=== PATIENT | female | born 1990 | race Caucasian/White ===

== ENCOUNTER → 2018-01-29 11:53 | Outpatient (CLI) | payer SELFPAY ==
[2018-01-29 15:06] LABS: Chlamydia Trachomatis by PCR Negative (Negative); Neisserai gonorrhoeae by PCR Negative (Negative); Probe Check PASS; Sample Adequacy Control PASS; Specimen Processing Control PASS
[2018-02-02 11:18] LABS: HPV Reflexed? NOT INDICATED
== END ==
PROVIDERS: Visit Provider Obstetrics & Gynecology
DX: Z12.4 Encounter for screening for malignant neoplasm of cervix (principal); Z11.3 Encounter for screening for infections with a predominantly sexual mode of transmission; Z32.01 Encounter for pregnancy test, result positive
CPT/HCPCS: 87491; 87591; 88175; G0145

== ENCOUNTER → 2018-02-11 15:04 | Outpatient (CLI) | payer OTHER, SELFPAY ==
--- NOTE | 2018-02-11 15:13 | ECHOD_ITS ---
Reason For Study: SYSTOLIC MURMUR Procedure This was a 2D Doppler, Color Flow transthoracic echocardiogram. Exam performed in department. Left Ventricle Normal size and thickness. The estimated ejection fraction is 65 %. No evidence for diastolic dysfunction. No regional wall motion abnormalities noted. Right Ventricle Normal size and thickness. Normal systolic function. Atria Normal left atrium. Normal right atrium. Normal atrial septum. Mitral Valve The mitral valve is structurally normal. No prolapse or stenosis seen. Tricuspid Valve Normal tricuspid valve. Trivial tricuspid valve insufficiency. Right ventricular systolic pressure estimated to be 38 mmHg. Aortic Valve Trisinus/trileaflet aortic valve. Pulmonic Valve Normal pulmonic valve. Great Vessels Normal aortic root. Normal arch. Normal inferior vena cava. Inferior vena cava collapse with sniff. Pericardium/Pleural No pericardial effusion. MMode/2D Measurements & Calculations LVIDd: 4.7 cm IVSd: 0.65 cm Ao root diam: 2.9 cm LVIDs: 2.8 cm LVPWd: 0.73 cm LA dimension: 3.0 cm RVDd: 2.7 cm FS: 40.4 % LAV(MOD-bp): 46.2 ml EDV(MOD-sp4): 72.4 ml SV(MOD-sp4): 39.6 ml LAV(MOD-bp) Indexed: 28.1 ml/m2 ESV(MOD-sp4): 32.9 ml LAV(MOD-sp2): 38.5 ml EF(MOD-sp4): 54.6 % LAV(MOD-sp4): 48.6 ml LA A4 area: 18.0 cm2 RA A4 area: 12.0 cm2 Time Measurements MV dec time: 0.20 sec Doppler Measurements & Calculations MV E max colten: 117.1 cm/sec Lat Peak E' Colten: 26.0 cm/sec Med Peak E' Colten: 18.9 cm/sec MV A max colten: 64.3 cm/sec E/E' lat: 4.5 E/E' med: 6.2 MV E/A: 1.8 Ao V2 max: 185.5 cm/sec LV V1 max: 130.2 cm/sec PA V2 max: 167.0 cm/sec Ao max P.8 mmHg LV V1 max P.8 mmHg TR max colten: 284.8 cm/sec TR max P.5 mmHg Interpretation Summary The estimated ejection fraction is 65 %. No evidence for diastolic dysfunction. Right ventricular systolic pressure estimated to be 38 mmHg. Trivial tricuspid valve insufficiency. There is no comparison study available. Ordering Physician: Jewels Tejada Referring Physician: Jewels Tejada Performed By: Lary Marques RDCS
== END ==
PROVIDERS: Visit Provider Obstetrics & Gynecology
DX: R01.1 Cardiac murmur, unspecified (principal)
CPT/HCPCS: 93306

== ENCOUNTER → 2018-02-19 15:49 | Outpatient (CLI) | payer OTHER, SELFPAY ==
[2018-02-19 17:26] LABS: Absolute Lymphocyte Count 1.54 X10^3/ul (0.83-4.51); Absolute Neutrophil Count 4.6 X10^3/uL (2.0-7.7); Basophil# 0.02 X10^3/uL; Basophil% 0.3 % (0-1); Eosinophil# 0.07 X10^3/uL; Hematocrit 36.1 % (37-47); Hemoglobin 12.1 g/dl (12.0-15.0); Lymphocyte # 1.54 X10^3/ul (4.0); Lymphocyte % 22.4 % (19-41); Mean Corp Hgb Conc 33.5 g/gl (32-36); Mean Corpuscular Hgb 30.4 pg (27.0-32.0); Mean Corpuscular Volume 90.7 fL (81-99); Mean Platelet Vol. 10.1 fl (6.2-12.0); Monocyte% 8.7 % (0-10); Neutrophil # 4.63 X10^3/uL (2.7-7.7); Neutrophil % 67.5 % (47-70); Platelet Count 264 K/mm3 (150-450); RBC Distribution Width CV 13.3 % (11.6-14.6); RBC Distribution Width SD 44.3 fl (35.1-43.9); Red Blood Count 3.98 M/mm3 (4.2-5.4); White Blood Count 6.9 K/mm3 (4.4-11.0)
[2018-02-19 17:34] LABS: POSITIVE COUNT NO; POSITIVE DIFFERENTIAL NO; POSITIVE MORPHOLOGY NO
[2018-02-19 17:50] LABS: Thyroid Stim Hormone (TSH) 1.08 uIU/mL (0.358-3.74)
[2018-02-19 18:26] LABS: HIV - WCH Non-Reactive (Nonreactive); Rubella IgG 67.4 IU/mL
[2018-02-19 18:54] LABS: Color, Urine Yellow (Yellow); Glucose, Dipstick Normal (Normal); Ketone-Dipstick Negative (Negative); Leukocyte Esterase-Dipstick Negative /ul (Negative); Nitrite-Dipstick Negative (Negative); Occult Blood-Urine Negative /ul (Negative); Protein-Dipstick Negative (Negative); Specific Gravity, Urine 1.015 (1.002-1.030); Urine Bilirubin Dipstick Negative (Negative); Urine Clarity Sl. Cloudy (Clear); Urine Urobilinogen Normal (Normal); Urine pH 6.5 (5.0 - 8.0)
[2018-02-22 08:53] LABS: HEPATITIS B SURFACE AG Negative (Negative); Hep C Antibodies <0.1 s/co ratio (0.0-0.9)
[2018-02-26 02:41] LABS: Prenatal RPR NONREACTIVE (NONREACTIVE)
== END ==
PROVIDERS: Visit Provider Obstetrics & Gynecology
DX: Z34.81 Encounter for supervision of other normal pregnancy, first trimester (principal)
CPT/HCPCS: 36415; 81002; 84443; 85025; 86703; 86762; 86803; 87340

== ENCOUNTER → 2018-06-11 14:42 | Outpatient (CLI) | payer OTHER, SELFPAY ==
[2018-06-11 16:04] LABS: Hemoglobin 11.4 g/dl (12.0-15.0); Mean Corp Hgb Conc 32.6 g/gl (32-36); Mean Corpuscular Volume 95.1 fL (81-99); Mean Platelet Vol. 10.1 fl (6.2-12.0); Platelet Count 239 K/mm3 (150-450); RBC Distribution Width CV 13.2 % (11.6-14.6); RBC Distribution Width SD 46.4 fl (35.1-43.9); Red Blood Count 3.68 M/mm3 (4.2-5.4); White Blood Count 7.8 K/mm3 (4.4-11.0)
[2018-06-11 16:09] LABS: Scan Indicated on CBC? Y/N NO
[2018-06-11 16:10] LABS: Glucose Challenge Gest 1H 50g 105 mg/dL (70-140)
== END ==
PROVIDERS: Visit Provider Obstetrics & Gynecology
DX: Z34.83 Encounter for supervision of other normal pregnancy, third trimester (principal)
CPT/HCPCS: 82950; 85027

== ENCOUNTER → 2018-08-02 13:42 | Outpatient (CLI) | payer SELFPAY ==
--- OUTSIDE RECORDS SUMMARY | 2018-11-04 05:01 | XMS RPT_ITS ---
:1990 Author Organization OHIP Care Team Providers Name Role Phone Jewels Tejada Attending Unavailable Primay Care Physicia, No Primary Care Unavailable Chery-Rafiq, Summer Attending Unavailable -Rafiq, Summer Referring Unavailable -Rafiq, Summer Attending Unavailable Chery-Rafiq, Summer Referring Unavailable Primay Care Physicia, No Primary Care Unavailable Chery-Rafiq Summer Attending Unavailable Primay Care Physicia, No Primary Care Unavailable Chery-Rafiq, Summer Admitting Unavailable Chery-Rafiq, Summer Attending Unavailable Chery-Rafiq, Summer Referring Unavailable Primay Care Physicia, No Primary Care Unavailable Jeff Mcginnis Attending Unavailable Chery-Rafiq, Jewels Attending Unavailable Primay Care Physicia, No Primary Care Unavailable PROBLEMS PROBLEMS DATE TYPE CONDITION / CODE ATTENDING STATUS SOURCE 08/02/2018 Unknown Z36.85 - Encounter Geovanna Tejada for Summer [facility] screening for Hospital Streptococcus B / Repository Z36.85(ICD-10) 06/11/2018 Unknown Z34.83 - Encounter Geovanna Tejada for supervision of [facility] normal Hospital , third Repository trimester / Z34.83(ICD-10) 02/19/2018 Unknown Z34.81 - Encounter Mallory Active Tabatha for supervision of [facility] other normal Hospital , first Repository trimester / Z34.81(ICD-10) 05/27/2018 Unknown R01.1 - Cardiac McginnisJeff Active Tabatha murmur, unspecified Community / R01.1(ICD-10) Hospital Repository 02/01/2018 Unknown Z32.01 - Encounter Geovanna Tejada for test, [facility] result positive / Hospital Z32.01(ICD-10) Repository 02/01/2018 Unknown Z11.3 - Encounter Geovanna Tejada for screening for [facility] infections with a Hospital predominantly Repository sexual mode of transmission / Z11.3(ICD-10) 02/01/2018 Unknown Z12.4 - Encounter Geovanna Tejada for screening for [facility] malignant neoplasm Hospital of cervix / Repository Z12.4(ICD-10) PROCEDURES PROCEDURES No Procedure Records FoundRESULTS RESULTS DISCHARGE INSTRUCTION Observed: 09/07/2018 Status: F Source: [place] 8:34 AM [facility] REPOSITORY [facility] Medical Records Department [address] [place] [address] Instructions for Home/Discharge Instructions 09/05/181918 MR#: [id number] Acct: [id number] Name: JOSE ESQUEDA Rip Rep #: [id number] : 1990 27 From: Jewels Conroy MD PCP: Care Physician, No Primary Status: ADM IN Discharge Diet: No Restrictions Discharge Activity: Return to Normal Activity, May Shower, May Take a Tub Bath May resume sexual activity in: 6 weeks Call your doctor if you observe: Fever of 101 or Higher, Inability to urinate, Inability to have a bowel movement, Using more than one pad per hour, Shortness of breath, Chest pain, Calf discomfort, Uncontrolled pain Suture Line Care: Avoid Pulling/Pushing Cleanse incision/area with: Soap AND Water Additional Instructions: If you experience any of the following, contact your healthcare provider. * Bleeding that soaks a pad every hour for 2 hours * Fever 100.4 or higher * Unrelieved incision or abdominal pain * Swelling, redness, discharge or bleeding from your incision or episiotomy site * Your incision begins to separate * Problems urinating (including inability to urinate or burning while urinating). * Visual changes * Severe headache * Flu-like symptoms * Pain or redness in one of both of your breasts * Pain, warmth, tenderness or swelling in your legs, especially the calf area * Frequent nausea and vomiting * Symptoms of depression or anxiety If you experience any of the following, call 911 or go to the nearest Emergency Room. * Chest pain * Problems breathing * Seizure activity * Partial or complete paralysis of a body part, slurred speech, weakness or drooping of the face, or a sudden inability to walk or hold your balance Allergies/Adverse Reactions: Allergies No Known Allergies Allergy (Verified 09/05/18 11:38) Medications to take at Discharge Docusate Sodium [Colace] 100 mg PO BID PRN PRN #60 capsule 09/05/18 Ibuprofen 600 mg PO TID PRN #30 tablet 09/05/18 Pnv No.95/Ferrous Fum/Folic AC [ Vitamins Tablet] 1 each PO DAILY 09/05/18 The following prescriptions were given: Docusate Sodium [Colace] 100 mg PO BID PRN PRN #60 capsule PRN Reason: Constipation Ibuprofen 600 mg PO TID PRN #30 tablet PRN Reason: Pain Please Follow Up With: Jewels Tejada MD When: 6 weeks Primary Care Physician: Care Physician,No Primary [Primary Care Provider] - Test Results: Test results from this visit will be discussed in further detail at your follow-up appointment, if applicable. 09/07/18 0834 <Electronically signed by Jewels Tejada MD> Date Jewels Tejada MD CC: No Primary Care Physician Signed OPERATIVE REPORT Observed: 09/05/2018 Status: F Source: TAB[place]HA 7:16 PM [facility] REPOSITORY [facility] Medical Records Department [address] [place] [address] Operative Report 09/05/181911 MR#: [id number] Acct: [id number] Name: JOSE ESQUEDA Rep #: [id number] : 1990 27 From: Jewels Conroy MD PCP: Care Physician, No Primary Status: ADM IN Location: [id number] - Problem List (1) 40 weeks gestation of Status: Acute (2) (spontaneous vaginal delivery) Status: Acute Vaginal Delivery Maternal Presentation: Spontaneous Rupture of Membranes Method of Induction: - - Pitocin augmentation Amniotic Membrane Rupture Type: Spontaneous at home Rupture of Membrane time: 09/05/18 0400h Amniotic Fluid Description: Clear Final CALIXTO: 08/31/18 Final CALIXTO Source: US <20 weeks Gestational age: 40 Weeks and 5 Days Date of Procedure: 09/05/18 Pre-Operative Diagnosis: 40 5/7wga Post-Operative Diagnosis: 40 5/7wga Surgery/ Procedure Performed: Spontaneous Vaginal Delivery Type of Anesthesia: None Description of Procedure: Patient was FD/+ 3 station on my arrival. She pushed to deliver a vigorous male infant in direct OA. The was placed on the maternal abdomen and further attended by nursery personnel. The cord was doubly clamped and cut at approximately 5 minutes of life. The placenta delivered spontaneously and appeared intact on inspection. A second degree perineal laceration was repaired with 3-0 Vicryl Rapide under 1% lidocaine local anesthetic. Sponge, needle counts were correct x 2. Presentation: Vertex Placental Delivery Description: Spontaneous Placenta Disposition: [facility] Cord Vessel Description: 3 Vessels Nuchal Cord Compression: Without compression Cord Entanglement: None Estimated Blood Loss: 300 ml Infant A gender: Male (1 minute): 8 (5 minute): 9 Laceration: Midline, Perineal Extension/lac, 2nd degree Medications given after delivery: IV Pitocin Complications: None 09/05/181915 <Electronically signed by Jewels Tejada MD> Date Jewels Tejada MD CC: No Primary Care Physician; Jewels Tejada MD Signed CBC-COMPLETE BLOOD CNT Collected: 09/05/2018 Status: F Source: [place] NO DIFF 12:00 PM [facility] REPOSITORY TYPE CODE TESTS RESULT OUT OF RANGE REFERENCE UNITS LAB L100.1000 4.4-11.0 K/mm3 Normal WBC 10.5 LAB L100.1200 4.2-5.4 M/mm3 Low RBC 3.87 LAB L100.1300 12.0-15.0 g/dl Normal HGB 12.4 LAB L100.1400 37-47 % Low HCT 36.5 LAB L100.1500 81-99 fL Normal MCV 94.3 LAB L100.1600 27.0-32.0 pg Normal MCH 32.0 LAB L100.1700 32-36 g/gl Normal MCHC 34.0 LAB L100.1810 11.6-14.6 % Normal RDW CV 13.1 LAB L100.1820 35.1-43.9 fl Normal RDW SD 43.8 LAB L100.1900 150-450 K/mm3 Normal PLT 238 LAB L100.2000 6.2-12.0 fl Normal MPV 10.2 Performed By: #### L100.0500 #### [facility] [address] [place], [address] TYPE AND SCREEN Collected: 09/05/2018 Status: F Source: TABATHA 12:00 PM [facility] REPOSITORY Order Comment: Reason for Type AND Screen/Red Cells: ROUTINE TYPE CODE TESTS RESULT OUT OF RANGE REFERENCE UNITS LAB B10.0800 AB Normal BLOOD TYPE GEL POSITIVE LAB B100.4000 Normal Antibody NEGATIVE Screen Performed By: #### B101.7450 #### [facility] [address] [facility] [place], [address] Observed: 08/02/2018 Status: F Source: TABATHA CULTURE, GROUP B 9:00 AM [facility] STREPTOCOCCUS REPOSITORY Comments: VAGINAL/RECTAL AGA Culture Group B Beta Streptococcus is not isolated. Performed By: #### M100.1800 #### [facility] [address] [facility] [place], [address] CBC-COMPLETE BLOOD CNT Collected: 06/11/2018 Status: F Source: [place] NO DIFF 2:15 PM [facility] REPOSITORY TYPE CODE TESTS RESULT OUT OF RANGE REFERENCE UNITS LAB L100.1000 4.4-11.0 K/mm3 Normal WBC 7.8 LAB L100.1200 4.2-5.4 M/mm3 Low RBC 3.68 LAB L100.1300 12.0-15.0 g/dl Low HGB 11.4 LAB L100.1400 37-47 % Low HCT 35.0 LAB L100.1500 81-99 fL Normal MCV 95.1 LAB L100.1600 27.0-32.0 pg Normal MCH 31.0 LAB L100.1700 32-36 g/gl Normal MCHC 32.6 LAB L100.1810 11.6-14.6 % Normal RDW CV 13.2 LAB L100.1820 35.1-43.9 fl High RDW SD 46.4 LAB L100.1900 150-450 K/mm3 Normal PLT 239 LAB L100.2000 6.2-12.0 fl Normal MPV 10.1 Performed By: #### L100.0500 #### [facility] [address] [place], [address] GLUCOSE CHALLENGE GEST Collected: 06/11/2018 Status: F Source: TABATHA 1H 50G 2:15 PM [facility] REPOSITORY TYPE CODE TESTS RESULT OUT OF RANGE REFERENCE UNITS LAB L501.0250 70-140 mg/dL Normal GLU GEST 105 50g 1H Performed By: #### L501.0250 #### [facility] [address] [place], [address] CBC W/DIFF, AUTOMATED Collected: 02/19/2018 Status: F Source: TAB[place]HA 3:53 PM [facility] REPOSITORY TYPE CODE TESTS RESULT OUT OF RANGE REFERENCE UNITS LAB L100.1000 4.4-11.0 K/mm3 Normal WBC 6.9 LAB L100.1200 4.2-5.4 M/mm3 Low RBC 3.98 LAB L100.1300 12.0-15.0 g/dl Normal HGB 12.1 LAB L100.1400 37-47 % Low HCT 36.1 LAB L100.1500 81-99 fL Normal MCV 90.7 LAB L100.1600 27.0-32.0 pg Normal MCH 30.4 LAB L100.1700 32-36 g/gl Normal MCHC 33.5 LAB L100.1810 11.6-14.6 % Normal RDW CV 13.3 LAB L100.1820 35.1-43.9 fl High RDW SD 44.3 LAB L100.1900 150-450 K/mm3 Normal PLT 264 LAB L100.2000 6.2-12.0 fl Normal MPV 10.1 LAB L100.2100 47-70 % Normal NEUT% 67.5 LAB L100.2200 19-41 % Normal LY% 22.4 LAB L100.2300 0-10 % Normal MONO% 8.7 LAB L100.2400 0-5 % Normal EO% 1.0 LAB L100.2500 0-1 % Normal BASO% 0.3 LAB L100.2550 0.0-0.9 % Normal IM GRAN % 0.100 Result Comment: IG% - Immature Granulocytes (promyelocytes, myelocytes and metamyelocytes) > 1% indicates that a LEFT SHIFT is Present. LAB L100.2620 2.0-7.7 X10 3/uL Normal Absolute Neut 4.6 LAB L100.2720 0.83-4.51 X10 3/ul Normal Absolute Lymph 1.54 Performed By: #### L100.0100 #### [facility] [address] [place], [place], [id number] THYROID STIM HORMONE Collected: 02/19/2018 Status: F Source: TAB[place]HA (TSH) 3:53 PM [facility] REPOSITORY TYPE CODE TESTS RESULT OUT OF RANGE REFERENCE UNITS LAB L501.9520 0.358-3.74 uIU/mL Normal TSH 1.08 Performed By: #### L501.9520 #### [facility] [address] [place], [place], [address] T AND S-NO Collected: 02/19/2018 Status: F Source: TAB[place]HA CHARGE W/PNP 3:53 PM [facility] REPOSITORY Order Comment: Reason for Type AND Screen/Red Cells: Surgery? N TYPE CODE TESTS RESULT OUT OF RANGE REFERENCE UNITS LAB B10.0800 AB Normal BLOOD POSITIVE TYPE GEL LAB B100.4050 Normal Ab SCREEN NEGATIVE GEL Performed By: #### B100.7550 #### [facility] [address] [facility] [place], [address] RUBELLA IGG Collected: 02/19/2018 Status: F Source: BABYLON 3:53 PM [facility] REPOSITORY TYPE CODE TESTS RESULT OUT OF RANGE REFERENCE UNITS LAB L509.4000 IU/mL Normal Rubella IgG 67.4 Result Comment: Antibody results Interpretation of Immune Status < 5 IU/ml Presumed Non-immune 5 - < 10 IU/ml Equivocal > or = 10 IU/ml Presumed Immune Performed By: #### L509.4000, L3890.6005 #### [facility] [address] [facility] [place], [address] HIV - [facility] Collected: 02/19/2018 Status: F Source: BABYLON 3:53 PM [facility] REPOSITORY TYPE CODE TESTS RESULT OUT OF RANGE REFERENCE UNITS LAB L3890.6005 Nonreactive Normal HIV - [facility] Non-Reactive Performed By: #### L509.3999, L3890.6005 #### [facility] [facility] [place], [address] URINALYSIS, ROUTINE Collected: 02/19/2018 Status: F Source: [place] (DIPSTICK) 3:53 PM [facility] REPOSITORY Order Comment: How was Urine Obtained? Urine, Random TYPE CODE TESTS RESULT OUT OF RANGE REFERENCE UNITS LAB L400.3000 Yellow COLOR Normal Yellow LAB L400.3050 Clear Normal CLARITY Sl. Cloudy LAB L400.3200 Normal mg/dl Normal GLUCOSE, UR Normal LAB L400.3300 Negative mg/dL Normal BILIRUBIN URINE Negative LAB L400.3400 Negative mg/dl Normal KETONE UR Negative LAB L400.3465 1.002-1.030 Normal SP.GR. DIPSTX 1.015 LAB L400.3550 5.0 - 8.0 pH UR Normal 6.5 LAB L400.3600 Negative mg/dl PROT Normal DIPSTX Negative LAB L400.3700 Normal mg/dl Normal UROBILI Normal LAB L400.3750 Negative Normal NITRITE UR Negative LAB L400.3780 Negative /ul Normal OCCULT BLOOD-UR Negative LAB L400.3800 Negative /ul LEUK Normal ESTERASE Negative Performed By: #### L400.2010 #### [facility] [address] [place], [place], [address] HEPATITIS B SURFACE Collected: 02/19/2018 Status: F Source: TAB[place]HA AG 3:53 PM [facility] REPOSITORY TYPE CODE TESTS RESULT OUT OF RANGE REFERENCE UNITS LAB L3100.0400 Negative Normal HB Negative SURF AG Result Comment: Performed at: - [facility] [id number] Training Generalist: Bradly Hooker PhD, Phone: [phone] Performed By: #### L3100.0390, L3100.0625 #### [facility] (refer to report for specific site) refer to report for address and phone number HEPATITIS C ANTIBODIES Collected: 02/19/2018 Status: F Source: TAB[place]HA 3:53 PM [facility] REPOSITORY TYPE CODE TESTS RESULT OUT OF RANGE REFERENCE UNITS LAB L3100.0650 0.0-0.9 s/co ratio Normal HEP C AB <0.1 Result Comment: Negative: < 0.8 Indeterminate: 0.8 - 0.9 Positive: > 0.9 The CDC recommends that a positive HCV antibody result be followed up with a HCV Nucleic Acid Amplification test (960495). Performed By: #### L3100.0390, L3100.0625 #### [facility] (refer to report for specific site) refer to report for address and phone number RPR Collected: 02/19/2018 Status: F Source: TAB[place]HA 3:53 PM [facility] REPOSITORY TYPE CODE TESTS RESULT OUT OF REFERENCE UNITS RANGE LAB L700.5100 NONREACTIVE Normal RPR NONREACTIVE Performed By: #### L700.5100 #### [facility] [address] [place], [address] ECHOCARDIOGRAM COMPLETE Observed: 02/12/2018 Status: F Source: BAB[place] 9:44 AM [facility] REPOSITORY [facility] Cardiovascular Services [address] [place] [address] Echo Complete 02/11/18 1516 MR#: [id number] Acct: [id number] Name: JOSE ESQUEDA Rep #: [id number] : 1990 27 From: Jeff Mcginnis MD Attending Dr: Mallory GÓMEZ,Summer Status: REG CLI Ordering Dr: Jewels Tejada MD Date: 02/11/18 Location: [facility] Sex: F C Admitted: Reason For Study: SYSTOLIC MURMUR Procedure This was a 2D Doppler, Color Flow transthoracic echocardiogram. Exam performed in department. Left Ventricle Normal size and thickness. The estimated ejection fraction is 65 %. No evidence for diastolic dysfunction. No regional wall motion abnormalities noted. Right Ventricle Normal size and thickness. Normal systolic function. Atria Normal left atrium. Normal right atrium. Normal atrial septum. Mitral Valve The mitral valve is structurally normal. No prolapse or stenosis seen. Tricuspid Valve Normal tricuspid valve. Trivial tricuspid valve insufficiency. Right ventricular systolic pressure estimated to be 38 mmHg. Aortic Valve Trisinus/trileaflet aortic valve. Pulmonic Valve Normal pulmonic valve. Great Vessels Normal aortic root. Normal arch. Normal inferior vena cava. Inferior vena cava collapse with sniff. Pericardium/Pleural No pericardial effusion. MMode/2D Measurements AND Calculations LVIDd: 4.7 cm IVSd: 0.65 cm Ao root diam: 2.9 cm LVIDs: 2.8 cm LVPWd: 0.73 cm LA dimension: 3.0 cm RVDd: 2.7 cm FS: 40.4 % LAV(MOD-bp): 46.2 ml EDV(MOD-sp4): 72.4 ml SV(MOD-sp4): 39.6 ml LAV(MOD-bp) Indexed: 28.1 ml/m2 ESV(MOD-sp4): 32.9 ml LAV(MOD-sp2): 38.5 ml EF(MOD-sp4): 54.6 % LAV(MOD-sp4): 48.6 ml LA A4 area: 18.0 cm2 RA A4 area: 12.0 cm2 Time Measurements MV dec time: 0.20 sec Doppler Measurements AND Calculations MV E max colten: 117.1 cm/sec Lat Peak E' Colten: 26.0 cm/sec Med Peak E' Colten: 18.9 cm/sec MV A max colten: 64.3 cm/sec E/E' lat: 4.5 E/E' med: 6.2 MV E/A: 1.8 Ao V2 max: 185.5 cm/sec LV V1 max: 130.2 cm/sec PA V2 max: 167.0 cm/sec Ao max P.8 mmHg LV V1 max P.8 mmHg TR max colten: 284.8 cm/sec TR max P.5 mmHg Interpretation Summary The estimated ejection fraction is 65 %. No evidence for diastolic dysfunction. Right ventricular systolic pressure estimated to be 38 mmHg. Trivial tricuspid valve insufficiency. There is no comparison study available. Ordering Physician: Jewels Tejada Referring Physician: Jewels Tejada Performed By: Lary Marques RDCS 02/12/18943 Date Jeff Mcginnis MD CC: No Primary Care Physician; Jewels Tejada MD Date Dictated: 02/11/18 1516 Date Transcribed: 02/12/18943 Life Teacher: Signed CT/NG [facility] BY PCR Collected: 01/28/2018 Status: F Source: TAB[place]HA 4:50 PM [facility] REPOSITORY TYPE CODE TESTS RESULT OUT OF RANGE REFERENCE UNITS LAB L8200.2100 Negative Normal Chlam Negative Trac PCR LAB L8200.2200 Negative Normal NG by Negative PCR Performed By: #### L8200.2000 #### [facility] [address] [place], [address] PAP I-G W/RFX Collected: 01/28/2018 Status: F Source: [place] HRHPV-APTIMA 4:50 PM [facility] REPOSITORY Order Comment: CYTOLOGY INFORMATION: - CLINICAL INFORMATION: - DATE LMP/MENOPAUSE: LMP 11/28/17 - COLLECTION VIAL: Thin Prep Vial - CINDER PITMAN SOURCE: CERVICAL/ENDOCERVICAL - COLLECTION TECHNIQUE: BRUSH/SPATULA Specimen Comment: [id number] Specimen Comment: No. of containers..01 ThinPrep Vial TYPE CODE TESTS RESULT OUT OF RANGE REFERENCE UNITS LAB L7400.0800 . Normal DIAGN Comment Result Comment: NEGATIVE FOR INTRAEPITHELIAL LESION AND MALIGNANCY. LAB L7400.0900 . Normal ADEQ Comment Result Comment: Satisfactory for evaluation. No endocervical component is identified. LAB L7400.1400 . Normal PERFORM Comment Result Comment: Iris Ayers, Senior Design Engineer (ASCP) LAB L7400.2575 . Normal TEST METHOD Comment Result Comment: This liquid based ThinPrep(R) pap test was screened with the use of an image guided system. LAB L7400.2600 . Normal . COMM LAB L7400.2700 . Normal PAPSMR Comment Result Comment: The Pap smear is a screening test designed to aid in the detection of premalignant and malignant conditions of the uterine cervix. It is not a diagnostic procedure and should not be used as the sole means of detecting cervical cancer. Both false-positive and false-negative reports do occur. LAB L7400.2800 . Normal HPV RFLX Comment Result Comment: The HPV DNA reflex criteria were not met with this specimen result therefore, no HPV testing was performed. Performed at: [facility] [id number] Training Generalist: Haley English MD, Phone: [phone] Performed By: #### L7400.0353 #### [facility] (refer to report for specific site) refer to report for address and phone number ALLERGIES ALLERGIES DATE TYPE / CODE NAME / CODE REACTION SEVERITY SOURCE 09/05/2018 Drug No Known Unknown [facility] Allergy/4160 Allergies/F00 Hospital 80573(SNOMED 9763454(RXNOR Repository CT) M) ENCOUNTERS ENCOUNTERS ADMIT/DISCHARGE ACCOUNT ADMITTING ENCOUNTER LOCATION SOURCE NUMBER CLASS 09/05/2018/ [id number] Mallory, Inpatient Tabatha [place] 9 1 Summer Encounter [facility] ing:WPRoom: Repository [id number]: 1 08/02/2018 [id number] Ambulatory Tabatha Tabatha 6 [facility] ing:[facility] Repository 06/11/2018 [id number] Ambulatory [place] 4 [facility] ing:[facility] Repository 02/19/2018 [id number] Ambulatory [place] 2 [facility] ing:WOBLAB Repository 02/11/2018 [id number] Ambulatory Tabatha Tabatha 9 [facility] ing:[facility] Repository 02/11/2018 [id number] Ambulatory BMSBuilding:W [place] 0 [facility] Repository 01/29/2018 [id number] Ambulatory [place] 7 [facility] ing:[facility] Repository PAYERS PAYERS ENCOUNTER GUARANTOR PAYER SUBSCRIBER SOURCE 09/05/2018 JOSE [id number] Primary Insurance:[facility] JOSE PHANB: [place] N MILL PACKAGE PLANPolicy [id number] Number: [place], [place] [address]Viv: [id number] Repository Date:2018-03-09 () 09/05/2018 Secondary NOT GIVENUNK Tabatha Insurance:SELF PAY [facility] Number: Effective Repository Date:2018-03-09 08/02/2018 JOSE [id number] Primary NOT GIVENUNK [place] N MILL Insurance:SELF [place]Y [place], [place] [address]Dzg: Number: Effective Repository Date:2018-08-02 () 06/11/2018 JOSE [id number] Primary JOSE E MILLERDOB: [place] N MILL Insurance:[facility] [id number], [place] [address]Wdb: MINISTRIEPolicy Repository Number: () [id number] Date: [place], [place] [address]YN: 06/11/2018 Secondary NOT GIVENUNK Tabatha Insurance:SELF PAY [facility] Number: Effective Repository Date:2018-06-11 02/19/2018 JOSE [id number] Primary JOSE E MILLERDOB: Tabatha N MILL Insurance:[facility] [id number] [place], [place] [address]Mwp: MINISTRIEPolicy Repository Number: () [id number] Date: [place], [place] [address]NU: 02/19/2018 Secondary NOT GIVENUNK Tabatha Insurance:SELF PAY [facility] Number: Effective Repository Date:2018-02-19 02/11/2018 JOSE [id number] Primary JOSE E MILLERDOB: [place] N MILL Insurance:[facility] [id number] [place], [place] [address]Gxc: MINISTRIEPolicy Repository Number: () [id number] Date: [place], [place] [address]ZM: 02/11/2018 Secondary JOSE E MILLERDOB: [place] Insurance:[facility] PACKAGE [id number] [facility] Number: Hospital [id number] Repository Date:2018-02-03 02/11/2018 Tertiary NOT GIVENUNK [place] Insurance:SELF PAY [facility] Number: Effective Repository Date:2018-02-03 02/11/2018 JOSE [id number] Primary Insurance:[facility] JOSE PHANB: [place]atha N [facility] PACK[facility] [id number] [facility] Number: [place], [place] [address]Xkq: [id number] Repository Date:2018-02-03 () 02/11/2018 Secondary NOT GIVENUNK Tabatha Insurance:SELF PAY [facility] Number: Effective Repository Date:2018-02-11 01/29/2018 JOSE TODD1 N Primary NOT GIVENUNK Tabatha ESQUEDA Insurance:[place] [address]Yuy: Number: Effective Repository Date:2018-01-29 ()
== END ==
PROVIDERS: Visit Provider Obstetrics & Gynecology
DX: Z36.85 Encounter for antenatal screening for Streptococcus B (principal)
CPT/HCPCS: 87081

== ENCOUNTER 2018-09-05 11:25 | Inpatient (IN) | payer SELFPAY ==
[2018-09-05 11:37] VITALS: BMI 28.1
[2018-09-05] MEDS: Lactated Ringers 1,000 ML 50 ML IV (12:00)
[2018-09-05 12:25] LABS: Hematocrit 36.5 % (37-47); Hemoglobin 12.4 g/dl (12.0-15.0); Mean Corpuscular Volume 94.3 fL (81-99); Mean Platelet Vol. 10.2 fl (6.2-12.0); Platelet Count 238 K/mm3 (150-450); RBC Distribution Width CV 13.1 % (11.6-14.6); RBC Distribution Width SD 43.8 fl (35.1-43.9); Red Blood Count 3.87 M/mm3 (4.2-5.4); White Blood Count 10.5 K/mm3 (4.4-11.0)
[2018-09-05 12:28] LABS: Scan Indicated on CBC? Y/N NO
[2018-09-05] MEDS: Nalbuphine 10 MG/ML Ampul IV (16:18)
[2018-09-05] MEDS: Ondansetron 4 MG/2 ML Vial IV (16:19)
[2018-09-05] MEDS: Oxytocin 30 units/NS 500 ml 30 UNITS/500 ML IV.SOLN 334 UNITS IV (18:44)
--- NOTE | 2018-09-05 19:12 | PCM.OB.VAG ---
- Problem List (1) 40 weeks gestation of Status: Acute (2) (spontaneous vaginal delivery) Status: Acute Vaginal Delivery Maternal Presentation: Spontaneous Rupture of Membranes Method of Induction: - - Pitocin augmentation Amniotic Membrane Rupture Type: Spontaneous at home Rupture of Membrane time: 09/05/18 0400h Amniotic Fluid Description: Clear Final CALIXTO: 08/31/18 Final CALIXTO Source: US <20 weeks Gestational age: 40 Weeks and 5 Days Date of Procedure: 09/05/18 Pre-Operative Diagnosis: 40 5/7wga Post-Operative Diagnosis: 40 5/7wga Surgery/ Procedure Performed: Spontaneous Vaginal Delivery Type of Anesthesia: None Description of Procedure: Patient was FD/+ 3 station on my arrival. She pushed to deliver a vigorous male in direct OA. The was placed on the maternal abdomen and further attended by nursery personnel. The cord was doubly clamped and cut at approximately 5 minutes of life. The placenta delivered spontaneously and appeared intact on inspection. A second degree perineal laceration was repaired with 3-0 Vicryl Rapide under 1% lidocaine local anesthetic. Sponge, needle counts were correct x 2. Presentation: Vertex Placental Delivery Description: Spontaneous Placenta Disposition: [facility] Cord Vessel Description: 3 Vessels Nuchal Cord Compression: Without compression Cord Entanglement: None Estimated Blood Loss: 300 ml Infant A gender: Male (1 minute): 8 (5 minute): 9 Laceration: Midline, Perineal Extension/lac, 2nd degree Medications given after delivery: IV Pitocin Complications: None
[2018-09-05] MEDS: Oxytocin 30 units/NS 500 ml 30 UNITS/500 ML IV.SOLN 167 UNITS IV (19:14)
--- NOTE | 2018-09-05 19:20 | DCINST_ITS ---
Discharge Diet: No Restrictions Discharge Activity: Return to Normal Activity, May Shower, May Take a Tub Bath May resume sexual activity in: 6 weeks Call your doctor if you observe: Fever of 101 or Higher, Inability to urinate, Inability to have a bowel movement, Using more than one pad per hour, Shortness of breath, Chest pain, Calf discomfort, Uncontrolled pain Suture Line Care: Avoid Pulling/Pushing Cleanse incision/area with: Soap & Water Additional Instructions: If you experience any of the following, contact your healthcare provider. * Bleeding that soaks a pad every hour for 2 hours * Fever 100.4 or higher * Unrelieved incision or abdominal pain * Swelling, redness, discharge or bleeding from your incision or episiotomy site * Your incision begins to separate * Problems urinating (including inability to urinate or burning while urinating). * Visual changes * Severe headache * Flu-like symptoms * Pain or redness in one of both of your breasts * Pain, warmth, tenderness or swelling in your legs, especially the calf area * Frequent nausea and vomiting * Symptoms of depression or anxiety If you experience any of the following, call 911 or go to the nearest Emergency Room. * Chest pain * Problems breathing * Seizure activity * Partial or complete paralysis of a body part, slurred speech, weakness or drooping of the face, or a sudden inability to walk or hold your balance Allergies/Adverse Reactions: Allergies No Known Allergies Allergy (Verified 09/05/18 11:38) Medications to take at Discharge Docusate Sodium [Colace] 100 mg PO BID PRN PRN #60 capsule 09/05/18 Ibuprofen 600 mg PO TID PRN #30 tablet 09/05/18 Pnv No.95/Ferrous Fum/Folic AC [ Vitamins Tablet] 1 each PO DAILY 09/05/18 The following prescriptions were given: Docusate Sodium [Colace] 100 mg PO BID PRN PRN #60 capsule PRN Reason: Constipation Ibuprofen 600 mg PO TID PRN #30 tablet PRN Reason: Pain Please Follow Up With: Jewels Tejada MD When: 6 weeks Primary Care Physician: Care Physician,No Primary [Primary Care Provider] - Test Results: Test results from this visit will be discussed in further detail at your follow- up appointment, if applicable.
[2018-09-05] MEDS: 0.9% Saline Lock 10 ML Syringe IV ×2 (20:24→23:58)
[2018-09-05] MEDS: Ibuprofen 600 MG Tablet PO (20:33)
[2018-09-05 23:51] VITALS: BP 112/67; PULSE 85; RESP 16; TEMP 37.1; O2SAT 95
[2018-09-06 04:10] VITALS: BP 120/80; PULSE 78; RESP 17; TEMP 37; O2SAT 96
[2018-09-06] MEDS: Ibuprofen 600 MG Tablet PO ×3 (06:26→18:32)
[2018-09-06 07:35] VITALS: BP 119/72; PULSE 83; RESP 16; TEMP 37.4; O2SAT 98
--- NOTE | 2018-09-06 08:30 | PCM.PN.OB ---
Patient Problems: Active and Suspected Problems 40 weeks gestation of (Acute) (spontaneous vaginal delivery) (Acute) Subjective: Diane denies significant pain. She feels well this am. Infant latching and nursing well. Denies heavy lochia. Objective: avss - Physical Exam General: Alert, Oriented x3, Cooperative, No apparent distress HEENT: Atraumatic, Normocephalic Lungs: Clear to auscultation, Normal air movement Cardiovascular: Regular rate, Regular Rhythm, Normal S1, Normal S2 Abdomen: Soft, Non Tender, Non-Distended, - - Fundus firm and nontender at umbilicus, lochia moderate Extremities: No edema Neurological: Neuro grossly intact Psych/Mental Status: Normal Affect, Appropriate, Alert and oriented to time, place, person, mood and affect Vital Signs Temp Pulse Resp BP Pulse Ox 99.3 F H 83 16 119/72 98 09/06/18 07:35 09/06/18 07:35 09/06/18 07:35 09/06/18 07:35 09/06/18 07:35 Oxygen Delivery Method Room Air Weight: 74.389 kg Body Mass Index (BMI) 28.1 Laboratory Tests Past 24 Hrs 09/05/18 09/05/18 12:00 12:00 WBC 10.5 RBC 3.87 L Hgb 12.4 Hct 36.5 L MCV 94.3 MCH 32.0 MCHC 34.0 RDW 13.1 RDW Differential 43.8 Plt Count 238 MPV 10.2 Blood Type AB POSITIVE Antibody Screen NEGATIVE Medical Necessity - Tobacco Use Smoking Status: Never smoker Assessment/Plan All Active Problems 40 weeks gestation of (Acute) (spontaneous vaginal delivery) (Acute) 27yo PPD#1 s/p doing well. -AB pos, Rub immune - -Routine care
[2018-09-06] MEDS: Senna/Docusate Sodium 1 Tablet PO (10:10)
[2018-09-06 11:55] VITALS: BP 124/70; PULSE 103; RESP 18; TEMP 37.3; O2SAT 98
[2018-09-06 16:35] VITALS: BP 131/71; PULSE 87; RESP 14; TEMP 37.1; O2SAT 98
[2018-09-06 21:30] VITALS: BP 121/63; RESP 103; TEMP 36.6; O2SAT 97
[2018-09-07 02:00] VITALS: BP 112/63; PULSE 83; RESP 16; TEMP 36.8
[2018-09-07] MEDS: Ibuprofen 600 MG Tablet PO ×2 (06:21→12:18)
[2018-09-07 08:00] VITALS: BP 117/71; PULSE 89; RESP 16; TEMP 37.6
--- NOTE | 2018-09-07 08:32 | PCM.PN.OB ---
Patient Problems: Active and Suspected Problems 40 weeks gestation of (Acute) (spontaneous vaginal delivery) (Acute) Subjective: No issues overnight. Perineum is sore, but relates continues to do well. OOB with no difficulty toileting or sitting. Continues nursing. Denies heavy lochia. Objective: AVSS - Physical Exam General: Alert, Oriented x3, Cooperative, No apparent distress HEENT: Atraumatic, Normocephalic Lungs: Clear to auscultation, Normal air movement Cardiovascular: Regular rate, Regular Rhythm, Normal S1, Normal S2 Abdomen: Soft, Non Tender, Non-Distended, - - Fundus firm and nontender at 2 FW below umbilicus Extremities: No edema, No Calf Tenderness Neurological: Neuro grossly intact Psych/Mental Status: Normal Affect, Appropriate, Alert and oriented to time, place, person, mood and affect Vital Signs Temp Pulse Resp BP Pulse Ox 98.3 F 83 16 112/63 97 09/07/18 02:00 09/07/18 02:00 09/07/18 02:00 09/07/18 02:00 09/06/18 21:30 Oxygen Delivery Method Room Air Weight: 74.389 kg Body Mass Index (BMI) 28.1 Medical Necessity - Tobacco Use Smoking Status: Never smoker Assessment/Plan All Active Problems 40 weeks gestation of (Acute) (spontaneous vaginal delivery) (Acute) 27yo PPD#2 s/p doing well. -AB pos, Rub immune - -Routine care -d/c home today
[2018-09-07 13:30] VITALS: BP 109/65; PULSE 85; RESP 16; TEMP 36.9
--- OUTSIDE RECORDS SUMMARY | 2018-11-08 11:15 | XMS RPT_ITS ---
[...] Z36.85 - Encounter Geovanna Tejada for [facility] screening for Hospital Streptococcus B / Repository Z36.85(ICD-10) 06/11/2018 Unknown Z34.83 - Encounter Geovanna Tejada for supervision of [facility] normal Hospital , third Repository trimester / Z34.83(ICD-10) 02/19/2018 Unknown Z34.81 - Encounter Mallory Active [place] for supervision of [facility] other normal Hospital , first Repository trimester / Z34.81(ICD-10) 05/27/2018 Unknown R01.1 - Cardiac McginnisJeff Active [place] murmur, unspecified Community / R01.1(ICD-10) Hospital Repository 02/01/2018 Unknown Z32.01 - Encounter Geovanna Tejada for test, [facility] result positive / Hospital Z32.01(ICD-10) Repository 02/01/2018 Unknown Z11.3 - Encounter Geovanna Tejada for screening for [facility] infections with a Hospital predominantly Repository sexual mode of transmission / Z11.3(ICD-10) 02/01/2018 Unknown Z12.4 - Encounter Geovanna Tejada for screening for [facility] malignant neoplasm Hospital of cervix / Repository Z12.4(ICD-10) PROCEDURES PROCEDURES No Procedure Records FoundRESULTS RESULTS DISCHARGE INSTRUCTION Observed: 09/07/2018 Status: F Source: [place] 8:34 AM [facility] REPOSITORY [facility] Medical Records Department [address] [address] Instructions for Home/Discharge Instructions 09/05/181918 MR#: [id number] Acct: [id number] Name: JOSE ESQUEDA Rip Rep #: [id number] : 1990 27 From: Jewels Conroy MD [...] 09/05/2018 Status: F Source: [place] 7:16 PM [facility] REPOSITORY [facility] Medical Records Department [address] [place] [address] Operative Report 09/05/181911 MR#: [id number] Acct: [id number] Name: JOSE ESQUEDA Rep #: [id number] : 1990 27 From: Jewels Conroy MD PCP: Care Physician, No Primary Status: ADM IN Location: CG368-2 - Problem List (1) 40 weeks gestation [...] F Source: [place] NO DIFF 12:00 PM [facility] REPOSITORY TYPE CODE TESTS RESULT [...] MPV 10.2 Performed By: #### L100.0500 #### [facility] [address] [place], [address] TYPE AND SCREEN Collected: 09/05/2018 Status: F Source: TAB[place] 12:00 PM [facility] REPOSITORY Order Comment: Reason for Type AND Screen/Red Cells: ROUTINE TYPE CODE TESTS RESULT OUT OF RANGE REFERENCE UNITS LAB B10.0800 AB Normal BLOOD TYPE GEL POSITIVE LAB B100.4000 Normal Antibody NEGATIVE Screen Performed By: #### B101.7450 #### [facility] [address] [facility] [place], [address] Observed: 08/02/2018 Status: F Source: [place] CULTURE, GROUP B 9:00 AM [facility] STREPTOCOCCUS REPOSITORY Comments: VAGINAL/RECTAL AGA Culture Group B Beta Streptococcus is not isolated. Performed By: #### M100.1800 #### [facility] [address] [place], [address] CBC-COMPLETE BLOOD CNT Collected: 06/11/2018 Status: F Source: [place] NO DIFF 2:15 PM [facility] REPOSITORY TYPE CODE TESTS RESULT [...] MPV 10.1 Performed By: #### L100.0500 #### [facility] [address] [place], [address] GLUCOSE CHALLENGE GEST Collected: 06/11/2018 Status: F Source: [place] 1H 50G 2:15 PM [facility] REPOSITORY TYPE CODE TESTS RESULT OUT OF RANGE REFERENCE UNITS LAB L501.0250 70-140 mg/dL Normal GLU GEST 105 50g 1H Performed By: #### L501.0250 #### [facility] [address] [place], [address] CBC W/DIFF, AUTOMATED Collected: 02/19/2018 Status: F Source: [place] 3:53 PM [facility] REPOSITORY TYPE CODE TESTS RESULT [...] Lymph 1.54 Performed By: #### L100.0100 #### [facility] [address] [place], [place], [address] THYROID STIM HORMONE Collected: 02/19/2018 Status: F Source: [place] (TSH) 3:53 PM [facility] REPOSITORY TYPE CODE TESTS RESULT OUT OF RANGE REFERENCE UNITS LAB L501.9520 0.358-3.74 uIU/mL Normal TSH 1.08 Performed By: #### L501.9520 #### [facility] [address] [place], [place], [address] T AND S-NO Collected: 02/19/2018 Status: F Source: [place] CHARGE W/PNP 3:53 PM [facility] REPOSITORY Order Comment: Reason for Type AND Screen/Red Cells: Surgery? N TYPE CODE TESTS RESULT OUT OF RANGE REFERENCE UNITS LAB B10.0800 AB Normal BLOOD POSITIVE TYPE GEL LAB B100.4050 Normal Ab SCREEN NEGATIVE GEL Performed By: #### B100.7550 #### [facility] [address] [facility] [place], [address] RUBELLA IGG Collected: 02/19/2018 Status: F Source: [place] 3:53 PM [facility] REPOSITORY TYPE CODE TESTS RESULT OUT OF RANGE REFERENCE UNITS LAB L509.4000 IU/mL Normal Rubella IgG 67.4 Result Comment: Antibody results Interpretation of Immune Status < 5 IU/ml Presumed Non-immune 5 - < 10 IU/ml Equivocal > or = 10 IU/ml Presumed Immune Performed By: #### L509.4000, L3890.6005 #### [facility] [address] [place], [address] HIV - [facility] Collected: 02/19/2018 Status: F Source: [place] 3:53 PM [facility] REPOSITORY TYPE CODE TESTS RESULT OUT OF RANGE REFERENCE UNITS LAB L3890.6005 Nonreactive Normal HIV - [facility] Non-Reactive Performed By: #### L509.3999, L3890.6005 #### [facility] [facility] [place], [address] URINALYSIS, ROUTINE Collected: 02/19/2018 Status: F Source: [place] (DIPSTICK) 3:53 PM [facility] REPOSITORY Order Comment: How was [...] ESTERASE Negative Performed By: #### L400.2010 #### [facility] [address] [place], [place], [address] HEPATITIS B SURFACE Collected: 02/19/2018 Status: F Source: TAB[place] AG 3:53 PM [facility] REPOSITORY TYPE CODE TESTS RESULT OUT OF RANGE REFERENCE UNITS LAB L3100.0400 Negative Normal HB Negative SURF AG Result Comment: Performed at: - [facility] [id number] Copy Writer: Bradly Hooker PhD, Phone: [phone] Performed By: #### L3100.0390, L3100.0625 #### [facility] (refer to report for specific site) refer to report for address and phone number HEPATITIS C ANTIBODIES Collected: 02/19/2018 Status: F Source: [place] 3:53 PM [facility] REPOSITORY TYPE CODE TESTS RESULT OUT OF RANGE REFERENCE UNITS LAB L3100.0650 0.0-0.9 s/co ratio Normal HEP C AB <0.1 Result Comment: Negative: < 0.8 Indeterminate: 0.8 - 0.9 Positive: > 0.9 The CDC recommends that a positive HCV antibody result be followed up with a HCV Nucleic Acid Amplification test (113474). Performed By: #### L3100.0390, L3100.0625 #### [facility] (refer to report for specific site) refer to report for address and phone number RPR Collected: 02/19/2018 Status: F Source: [place] 3:53 PM [facility] REPOSITORY TYPE CODE TESTS RESULT OUT OF REFERENCE UNITS RANGE LAB L700.5100 NONREACTIVE Normal RPR NONREACTIVE Performed By: #### L700.5100 #### [facility] [address] [place], [address] ECHOCARDIOGRAM COMPLETE Observed: 02/12/2018 Status: F Source: [place] 9:44 AM [facility] REPOSITORY [facility] [address] [place] [address] Echo Complete 02/11/18 1516 MR#: [id number] Acct: [id number] Name: JOSE ESQUEDA Rep #: [id number] : 1990 27 From: Jeff Mcginnis MD Attending Dr: Mallory GÓMEZ,Summer Status: REG CLI Ordering Dr: Jewels Tejada MD Date: 02/11/18 Location: [facility] Sex: F C Admitted: Reason For Study: [...] Date Dictated: 02/11/18 1516 Date Transcribed: 02/12/18943 Rug Dyer Helper: Signed CT/NG [facility] BY PCR Collected: 01/28/2018 Status: F Source: TABATHA 4:50 PM [facility] REPOSITORY TYPE CODE TESTS RESULT OUT OF RANGE REFERENCE UNITS LAB L8200.2100 Negative Normal Chlam Negative Trac PCR LAB L8200.2200 Negative Normal NG by Negative PCR Performed By: #### L8200.2000 #### [facility] [address] [place], [address] PAP I-G W/RFX Collected: 01/28/2018 Status: F Source: B[place]ES HRHPV-APTIMA 4:50 PM [facility] REPOSITORY Order Comment: CYTOLOGY INFORMATION: - CLINICAL INFORMATION: - DATE LMP/MENOPAUSE: LMP 11/28/17 - COLLECTION VIAL: Thin Prep Vial - VERIFICATION CLERK SOURCE: CERVICAL/ENDOCERVICAL - COLLECTION TECHNIQUE: BRUSH/SPATULA Specimen Comment: [id number] Specimen Comment: No. of containers..01 ThinPrep Vial TYPE CODE TESTS RESULT OUT OF RANGE REFERENCE UNITS LAB L7400.0800 . Normal DIAGN Comment Result Comment: NEGATIVE FOR INTRAEPITHELIAL LESION AND MALIGNANCY. LAB L7400.0900 . Normal ADEQ Comment Result Comment: Satisfactory for evaluation. No endocervical component is identified. LAB L7400.1400 . Normal PERFORM Comment Result Comment: Iris Ayers, Rn Occupational (ASCP) LAB L7400.2575 . Normal TEST METHOD [...] no HPV testing was performed. Performed at: [facility] [id number] Copy Writer: Haley English MD, Phone: [phone] Performed By: #### L7400.0353 #### [facility] (refer to report for specific site) refer to report for address and phone number ALLERGIES ALLERGIES DATE TYPE / CODE NAME / CODE REACTION SEVERITY SOURCE 09/05/2018 Drug No Known Unknown [facility] Allergy/4160 Allergies/F00 Hospital 09982(SNOMED [id number](RXNOR Repository CT) M) ENCOUNTERS ENCOUNTERS ADMIT/DISCHARGE ACCOUNT ADMITTING ENCOUNTER LOCATION SOURCE NUMBER CLASS 09/05/2018/ [id number] Mallory, Inpatient [place] 9 1 Summer Encounter [facility] ing:WPRoom: Repository [id number]: 1 08/02/2018 [id number] Ambulatory [place] 6 [facility] ing:[facility] Repository 06/11/2018 [id number] Ambulatory [place] 4 [facility] ing:[facility] Repository 02/19/2018 [id number] Ambulatory [place] 2 [facility] ing:WOBLAB Repository 02/11/2018 [id number] Ambulatory [place] 9 [facility] ing:[facility] Repository 02/11/2018 [id number] Ambulatory BMSBuilding:W [place] 0 [facility] Repository 01/29/2018 [id number] Ambulatory [place] 7 [facility] ing:[facility] Repository PAYERS PAYERS ENCOUNTER GUARANTOR PAYER SUBSCRIBER SOURCE 09/05/2018 JOSE [id number] Primary Insurance:[facility] JOSE PHANB: [place] N MILL PACKAGE PLANPolicy [id number] Number: [place], [place] [address]Fov: [id number] Repository Date:2018-03-09 () 09/05/2018 Secondary NOT GIVENUNK [place] Insurance:SELF PAY [facility] Number: Effective Repository Date:2018-03-09 08/02/2018 JOSE [id number] Primary NOT GIVENUNK [place] N MILL Insurance:SELF [place]Y [place], [place] [address]Llu: Number: Effective Repository Date:2018-08-02 () 06/11/2018 JOSE [id number] Primary JOSE E MILLERDOB: [place] N MILL Insurance:[facility] [id number], [place] [address]Rfy: MINISTRIEPolicy Repository Number: () [id number] Date: [place], [place] [address]HH: 06/11/2018 Secondary NOT GIVENUNK [place] Insurance:SELF PAY [facility] Number: Effective Repository Date:2018-06-11 02/19/2018 JOSE [id number] Primary JOSE E MILLERDOB: [place] N MILL Insurance:[facility] [id number], [place] [address]Iav: [employer]Policy Repository Number: () [id number] Date: [place], [place] [address]NN: 02/19/2018 Secondary NOT GIVENUNK [place] Insurance:SELF PAY [facility] Number: Effective Repository Date:2018-02-19 02/11/2018 JOSE [id number] Primary JOSE E MILLERDOB: [place] N MILL Insurance:[facility] [id number], [place] [address]Gst: MINISTRIEPolicy Repository Number: () [id number] Date: [place], [place] [address]WO: 02/11/2018 Secondary JOSE E MILLERDOB: [place] Insurance:[facility] PACKAGE [id number] [facility] Number: Hospital [id number] Repository Date:2018-02-03 02/11/2018 Tertiary NOT GIVENUNK [place] Insurance:SELF PAY [facility] Number: Effective Repository Date:2018-02-03 02/11/2018 JOSE [id number] Primary Insurance:[facility] JOSE PHANB: [place] N [facility] PACKAGE [facility] [id number] [facility] Number: [place], [place] [address]Gbw: [id number] Repository Date:2018-02-03 () 02/11/2018 Secondary NOT GIVENUNK [place] Insurance:SELF PAY [facility] Number: Effective Repository Date:2018-02-11 01/29/2018 JOSE TODD1 N Primary NOT GIVENUNK [place] ESQUEDA Insurance:SELF [place]Y [place], [place] [address]Rws: Number: Effective Repository Date:2018-01-29 ()
== END 2018-09-07 14:00 | disposition home or self-care (01) | DRG 807 ==
PROVIDERS: Admitting Provider Obstetrics & Gynecology; Visit Provider Obstetrics & Gynecology
DX: O42.02 Full-term premature rupture of membranes, onset of labor within 24 hours of rupture (principal); Z37.0 Single live birth; O70.1 Second degree perineal laceration during delivery; Z3A.40 40 weeks gestation of pregnancy
CPT/HCPCS: 59025; 59050; 85027; 86850; 86900; 99218; J7120; A4216; G0378; J2405

== ENCOUNTER → 2020-09-25 09:55 | Outpatient (CLI) | payer OTHER, SELFPAY ==
[2020-09-25 10:52] LABS: Absolute Lymphocyte Count 1.96 X10^3/uL (0.83-4.51); Absolute Neutrophil Count 4.4 X10^3/uL (2.0-7.7); Basophil# 0.03 X10^3/uL; Basophil% 0.4 % (0-1); Eosinophil# 0.05 X10^3/uL; Eosinophils% 0.7 % (0-5); Hematocrit 36.8 % (37-47); Hemoglobin 12.2 g/dL (12.0-15.0); Lymphocyte # 1.96 X10^3/ul (4.0); Mean Corp Hgb Conc 33.2 g/dL (32-36); Mean Corpuscular Hgb 30.4 pg (27.0-32.0); Mean Corpuscular Volume 91.8 fL (81-99); Mean Platelet Vol. 10.4 fl (6.2-12.0); Monocyte# 0.57 X10^3/uL; Monocyte% 8.1 % (0-10); NRBC Flagged by Analyzer 0 % (0-5); Neutrophil # 4.38 X10^3/uL (2.7-7.7); Neutrophil % 62.5 % (47-70); Platelet Count 265 K/mm3 (150-450); RBC Distribution Width CV 12.7 % (11.6-14.6); RBC Distribution Width SD 42.5 fl (35.1-43.9); Red Blood Count 4.01 M/mm3 (4.2-5.4)
[2020-09-25 11:38] LABS: Thyroid Stim Hormone (TSH) 1.19 uIU/mL (0.358-3.74)
[2020-09-25 11:49] LABS: HIV - WCH Non-Reactive (Nonreactive); Hepatitis B Surface Antigen Non-Reactive (Nonreactive); Hepatitis C Antibody Non-Reactive (Nonreactive); Rubella IgG Reactive (Nonreactive)
[2020-09-25 12:08] LABS: Color, Urine Straw (Yellow); Glucose, Dipstick Normal (Normal); Ketone-Dipstick Negative (Negative); Leukocyte Esterase-Dipstick 100 /ul (Negative); Nitrite-Dipstick Negative (Negative); Occult Blood-Urine Negative /ul (Negative); Protein-Dipstick Negative (Negative); Urine Bilirubin Dipstick Negative (Negative); Urine Clarity Clear (Clear); Urine Urobilinogen Normal (Normal)
[2020-09-25 12:21] LABS: Amphetamine Urine VISTA NEGATIVE (<1000 ng/mL); Barbiturate Urine VISTA NEGATIVE (< 200 ng/mL); Benzodiazepine Urine VISTA NEGATIVE (< 200 ng/mL); Cocaine Urine VISTA NEGATIVE (< 300 ng/mL); Ecstacy Urine VISTA NEGATIVE (< 500 ng/mL); Methadone Urine VISTA NEGATIVE (< 300 ng/mL); PCP Urine VISTA NEGATIVE (< 25 ng/mL); THC Urine VISTA NEGATIVE (< 50 ng/mL); Vista UDS pH Range 7
[2020-09-27 01:42] LABS: Prenatal RPR NONREACTIVE (NONREACTIVE)
[2020-09-27 08:08] LABS: Chlamydia By Nucleic Acid AMP Negative (Negative)
[2020-09-27 09:35] LABS: Gonococcus By Nucleic Acid AMP Negative (Negative)
[2020-09-28 01:25] LABS: HPV Reflexed? NOT INDICATED
== END ==
PROVIDERS: Visit Provider Obstetrics & Gynecology
DX: Z34.81 Encounter for supervision of other normal pregnancy, first trimester (principal)
CPT/HCPCS: 36415; 80307; 81002; 84443; 85025; 86703; 86762; 86803; 87340; 87491; 87591; 88175; G0145

== ENCOUNTER → 2021-02-06 09:13 | Outpatient (CLI) | payer SELFPAY ==
[2021-02-06 09:36] LABS: Hemoglobin 10.8 g/dL (12.0-15.0); Mean Corp Hgb Conc 32.7 g/dL (32-36); Mean Corpuscular Hgb 31.7 pg (27.0-32.0); Mean Corpuscular Volume 96.8 fL (81-99); Mean Platelet Vol. 9.7 fl (6.2-12.0); Platelet Count 232 K/mm3 (150-450); RBC Distribution Width CV 13.2 % (11.6-14.6); RBC Distribution Width SD 46.8 fl (35.1-43.9); Red Blood Count 3.41 M/mm3 (4.2-5.4); White Blood Count 7.6 K/mm3 (4.4-11.0)
[2021-02-06 09:50] LABS: Glucose 128 mg/dL (74-106)
== END ==
PROVIDERS: Visit Provider Obstetrics & Gynecology
DX: Z34.82 Encounter for supervision of other normal pregnancy, second trimester (principal)
CPT/HCPCS: 36415; 82947; 85027

== ENCOUNTER → 2021-04-24 | Outpatient (CLI) | payer SELFPAY | END | disposition home or self-care (01) | LOC: LABSPEC 04-25 10:30 | PROVIDERS: Visit Provider Obstetrics & Gynecology | DX: Z36.85 Encounter for antenatal screening for Streptococcus B (principal) | CPT/HCPCS: 87081 ==

== ENCOUNTER 2021-05-11 14:32 | Outpatient (CLI) | payer SELFPAY ==
[2021-05-11 14:43] VITALS: BP 136/74; PULSE 88; PULSE 97; O2SAT 98
[2021-05-11 14:51] VITALS: BMI 28.6
[2021-05-11 15:04] VITALS: BP 118/66; PULSE 90
--- NOTE | 2021-05-15 08:10 | OB.TRI.NOTE ---
HPI - General HPI Narrative JOSE ESQUEDA, is a 30 F who presents at 39 weeks 5 days gestation with decreased movement. PFSH PFSH Home Medications PNV cmb#95-ferrous fumarate-FA [] 1 ea PO DAILY 09/05/18 [History Last Taken 05/11/21 10:00] Allergy/AdvReac Type Severity Reaction Status Date / Time No Known Allergies Allergy Verified 11/09/19 14:39 Social History (System 11/09/19 @ 14:39 by Russ Juarez) Smoking Status: Never smoker History Elective abortions Hx Para 0 Spontaneous abortions Hx # Term Pregnancies Ectopic pregnancies Hx # Pregnancies Multiple births # of living children NST FHR Rate Baby A NST Reactive:: Yes FHR Category:: Category I Assessment & Plan (1) Decreased movement during : PLAN: 39+ week intrauterine with decreased movement. Reactive nonstress test. Patient discharged to home with routine follow-up.
== END 2021-05-11 15:11 | disposition home or self-care (01) ==
LOC: WPOUT 14:38 → WP 14:39
PROVIDERS: Visit Provider Obstetrics & Gynecology
DX: O36.8130 Decreased fetal movements, third trimester, not applicable or unspecified (principal); Z3A.39 39 weeks gestation of pregnancy
CPT/HCPCS: 59025; 59050; 99218; G0378